=== PATIENT | male | born 1955 | race Asian ===

== ENCOUNTER → 2016-09-01 | Outpatient (CLI) | payer BC ==
[~2016-09-01] MED LIST: ASPIRIN 81M81 MG/TA2 PO; BRILINTA90 MG PO; FARXIGA10 PO; GLUCOPHAGE850 MG/TAB PO; JANUVIA 100MG100 MG PO; ZOCOR 20MG20 MG PO
[2016-09-01 09:10] LABS: HEMATOCRIT 47.2 % (42.0-52.0); HEMOGLOBIN 15.5 g/dl (13.5-18.0); MEAN CELL VOLUME 88 fl (80.0-100.0); MEAN CORPUSCULAR HEMOGLOBIN 29 pg (27.0-31.0); MEAN CORPUSCULAR HGB CONC 33 g/dl (33.0-37.0); PLATELET COUNT 162 K/mm3 (130-400); RED BLOOD COUNT 5.37 M/mm3 (4.20-5.60); REDCELL DISTRIBUTION WIDTH-CV 12.1 % (11.5-14.5); WHITE BLOOD COUNT 5.1 K/mm3 (4.8-10.8)
[2016-09-01 09:17] LABS: INR 0.9 (0.8-3.0); PROTHROMBIN TIME 10.2 SECONDS (9.7-12.8)
[2016-09-01 09:19] LABS: CALCIUM 9.3 mg/dL (8.4-10.2); CREATININE, serum 0.96 mg/dL (0.66-1.25); POTASSIUM 5.1 mmol/L (3.4-5.0)
== END ==
LOC: COL.CARD 06:19
PROVIDERS: Emergency Medicine
DX: E11.9 Type 2 diabetes mellitus without complications (principal)

== ENCOUNTER 2016-09-02 09:38 | Observation (INO) | payer BC ==
[~2016-09-02] VITALS: Ht 167.6 cm; Wt 68.0 kg
[2016-09-02] VITALS (247 sets, daily range): BP systolic 118–166; BP diastolic 64–77; PULSE 64–77; TEMP 97.3–98.7; O2SAT 95–100
[2016-09-02] MEDS ORDERED: GLUCOPHAGE850 MG/TAB PO (10:55)
[2016-09-02] MEDS ORDERED: JANUVIA 100MG100 MG PO (10:56)
[2016-09-02] MEDS ORDERED: FARXIGA10 PO (10:57)
[2016-09-02] MEDS ORDERED: ZOCOR 20MG20 MG PO (10:57)
[2016-09-02 11:06] LABS: HEMATOCRIT 45.3 % (42.0-52.0); HEMOGLOBIN 15.1 g/dl (13.5-18.0); MEAN CELL VOLUME 88 fl (80.0-100.0); MEAN CORPUSCULAR HEMOGLOBIN 29 pg (27.0-31.0); MEAN CORPUSCULAR HGB CONC 33 g/dl (33.0-37.0); MEAN PLATELET VOLUME 10.2 fl (7.4-10.4); PLATELET COUNT 177 K/mm3 (130-400); RED BLOOD COUNT 5.16 M/mm3 (4.20-5.60); WHITE BLOOD COUNT 5.1 K/mm3 (4.8-10.8)
[2016-09-02 11:07] LABS: CALCIUM 9.1 mg/dL (8.4-10.2); CREATININE, serum 0.88 mg/dL (0.66-1.25); POTASSIUM 4.5 mmol/L (3.4-5.0)
[2016-09-02 11:09] LABS: PROTHROMBIN TIME 10.6 SECONDS (9.7-12.8)
[2016-09-03] VITALS: BP 116/62; BP 119/62; PULSE 70; TEMP 98.4
[2016-09-03 04:24] VITALS: BP 119/62; PULSE 69; TEMP 98.2
[2016-09-03 04:25] VITALS: BP 119/62; PULSE 69; TEMP 98.2
[2016-09-03 06:22] LABS: BASO % 0.7 % (0.0-2.0); EOS # 0.3 (0.0-0.7); EOS % 5.1 % (0-4.0); GRAN # 3.2 (1.4-6.5); HEMATOCRIT 45.7 % (42.0-52.0); HEMOGLOBIN 15.1 g/dl (13.5-18.0); LYMPH # 1.6 (1.2-3.4); LYMPH % 28.4 % (20.0-51.0); MEAN CELL VOLUME 88 fl (80.0-100.0); MEAN CORPUSCULAR HEMOGLOBIN 29 pg (27.0-31.0); MEAN CORPUSCULAR HGB CONC 33 g/dl (33.0-37.0); MEAN PLATELET VOLUME 10.2 fl (7.4-10.4); MONO # 0.6 (0.1-0.6); MONO % 9.6 % (1.7-9.3); PLATELET COUNT 181 K/mm3 (130-400); RED BLOOD COUNT 5.22 M/mm3 (4.20-5.60); WHITE BLOOD COUNT 5.7 K/mm3 (4.8-10.8)
[2016-09-03 06:35] LABS: CALCIUM 8.8 mg/dL (8.4-10.2); CREATININE, serum 0.94 mg/dL (0.66-1.25); POTASSIUM 4.1 mmol/L (3.4-5.0)
[2016-09-03] MEDS ORDERED: BRILINTA90 MG PO (07:37)
[2016-09-03] MEDS ORDERED: ASPIRIN 81M81 MG/TA2 PO (07:37)
[2016-09-03 09:04] VITALS: BP 119/62; PULSE 72; TEMP 98
[2016-09-03 11:56] VITALS: BP 119/62; PULSE 75; TEMP 98
== END 2016-09-03 15:20 | disposition home or self-care (01) ==
LOC: EUO 09:38 → COL.CAR 10:00 → ICU 14:37 → IMCU 19:46
PROVIDERS: Internal Medicine Interventional Cardiology
DX: I25.10 Atherosclerotic heart disease of native coronary artery without angina pectoris (principal); Z79.84 Long term (current) use of oral hypoglycemic drugs; Z79.01 Long term (current) use of anticoagulants
CPT/HCPCS: C1725; C1760; C1769; C1874; C1887; C9600; C9601; J0583; J2250; J3010; Q9967

== ENCOUNTER 2017-03-02 12:36 | Inpatient (IN) | payer BC ==
[~2017-03-02] VITALS: Ht 167.6 cm; Wt 69.3 kg
[2017-03-02] VITALS (11 sets, daily range): BP systolic 129–165; BP diastolic 57–102; PULSE 62–76; TEMP 97.3–97.5
[2017-03-02 13:13] LABS: HEMATOCRIT 48.9 % (42.0-52.0); HEMOGLOBIN 16.2 g/dl (13.5-18.0); MEAN CELL VOLUME 89 fl (80.0-100.0); MEAN CORPUSCULAR HEMOGLOBIN 30 pg (27.0-31.0); MEAN CORPUSCULAR HGB CONC 33 g/dl (33.0-37.0); MEAN PLATELET VOLUME 9.7 fl (7.4-10.4); PLATELET COUNT 170 K/mm3 (130-400); WHITE BLOOD COUNT 4.7 K/mm3 (4.8-10.8)
[2017-03-02 13:18] LABS: PROTHROMBIN TIME 11.6 SECONDS (9.7-12.8)
[2017-03-02 13:23] LABS: CALCIUM 9.9 mg/dL (8.4-10.2); CREATININE, serum 1.04 mg/dL (0.66-1.25)
[2017-03-02] MEDS ORDERED: IMDUR 30MG30 MG/TAB PO (13:34)
[2017-03-02] MEDS ORDERED: COREG 3.123.125 MG/T PO (13:34)
[2017-03-02] MEDS ORDERED: NITROSTAT0.4 MG/TAB SL (13:34)
[2017-03-03 01:11] VITALS: BP 121/65; PULSE 63; TEMP 97.6
[2017-03-03 04:53] VITALS: BP 132/58; PULSE 69; TEMP 98.8
[2017-03-03 07:14] LABS: HEMATOCRIT 47.2 % (42.0-52.0); HEMOGLOBIN 15.7 g/dl (13.5-18.0); MEAN CELL VOLUME 89 fl (80.0-100.0); MEAN CORPUSCULAR HEMOGLOBIN 30 pg (27.0-31.0); MEAN CORPUSCULAR HGB CONC 33 g/dl (33.0-37.0); MEAN PLATELET VOLUME 10.2 fl (7.4-10.4); PLATELET COUNT 169 K/mm3 (130-400); RED BLOOD COUNT 5.31 M/mm3 (4.20-5.60); WHITE BLOOD COUNT 7.2 K/mm3 (4.8-10.8)
[2017-03-03 07:26] LABS: CALCIUM 9.4 mg/dL (8.4-10.2); CREATININE, serum 0.95 mg/dL (0.66-1.25); POTASSIUM 4.1 mmol/L (3.4-5.0)
[2017-03-03 08:32] VITALS: BP 112/51; PULSE 73; TEMP 97.6
[2017-03-03] MEDS ORDERED: NITROSTAT0.4 MG/TAB SL (09:35)
[2017-03-03] MEDS ORDERED: IMDUR 60MG60 MG/TAB PO (09:35)
[2017-03-03] MEDS ORDERED: LIPITOR 80MG80 MG PO (09:43)
[2017-03-03 09:51] LABS: CHOLESTEROL RISK RATIO 2.9
== END 2017-03-03 11:49 | disposition home or self-care (01) | DRG 247 ==
LOC: COL.CAR 12:36 → MEDICAL 19:57 → COL.CAR 19:58 → MEDICAL 21:00
PROVIDERS: Internal Medicine Interventional Cardiology; Nurse Practitioner Family
PROC: 027135Z Dilation of Coronary Artery, Two Arteries with Two Drug-eluting Intraluminal Devices, Percutaneous Approach (ICD-10-PCS; principal; 2017-03-02)
PROC: B2111ZZ Fluoroscopy of Multiple Coronary Arteries using Low Osmolar Contrast (ICD-10-PCS; 2017-03-02)
PROC: B2151ZZ Fluoroscopy of Left Heart using Low Osmolar Contrast (ICD-10-PCS; 2017-03-02)
PROC: 4A023N7 Measurement of Cardiac Sampling and Pressure, Left Heart, Percutaneous Approach (ICD-10-PCS; 2017-03-02)
DX: I25.10 Atherosclerotic heart disease of native coronary artery without angina pectoris (principal); Z95.5 Presence of coronary angioplasty implant and graft; E11.9 Type 2 diabetes mellitus without complications
CPT/HCPCS: C9600; C9601; J0583; J2250; J3010; Q9967

== ENCOUNTER → 2017-04-06 | Outpatient (CLI) | payer BC ==
[~2017-04-06] MED LIST changes: +COREG 3.123.125 MG/T PO; +IMDUR 30MG30 MG/TAB PO; +IMDUR 60MG60 MG/TAB PO; +LIPITOR 80MG80 MG PO; +NITROSTAT0.4 MG/TAB SL
== END ==
LOC: COL.RAD 03-30 09:45
DX: K76.0 Fatty (change of) liver, not elsewhere classified (principal)

== ENCOUNTER → 2018-01-18 | Outpatient (CLI) | payer BC | LOC: COL.RAD 01-13 12:45 | DX: M79.89 Other specified soft tissue disorders (principal); M67.823 Other specified disorders of tendon, right elbow ==

== ENCOUNTER → 2018-02-15 | Outpatient (CLI) | payer BC | LOC: COL.RAD 09:16 | DX: M79.89 Other specified soft tissue disorders (principal) | CPT/HCPCS: A9585 ==

== ENCOUNTER → 2018-05-13 | Day surgery (SDC) | payer MEDICARE, BC ==
--- NOTE | 2018-05-14 12:40 | NUR ---
Initial visit; Payroll Professional spoke with family letting them know spiritual care is available. They thanked Payroll Professional for coming by though declined.
[2018-05-14 15:05] LABS: HEMATOCRIT 44.6 % (42.0-52.0); HEMOGLOBIN 14.7 g/dl (13.5-18.0); MEAN CELL VOLUME 91 fl (80.0-100.0); MEAN CORPUSCULAR HEMOGLOBIN 30 pg (27.0-31.0); MEAN CORPUSCULAR HGB CONC 33 g/dl (33.0-37.0); PLATELET COUNT 168 K/mm3 (130-400); RED BLOOD COUNT 4.89 M/mm3 (4.20-5.60); REDCELL DISTRIBUTION WIDTH-CV 12.5 % (11.5-14.5)
[2018-05-14 15:30] LABS: CALCIUM 9.1 mg/dL (8.4-10.2); CREATININE, serum 0.81 mg/dL (0.66-1.25); POTASSIUM 4.4 mmol/L (3.4-5.0)
[2018-05-14 16:49] LABS: PROTHROMBIN TIME 11.1 SECONDS (9.7-12.8)
== END ==
LOC: COL.CAR 11:37
PROVIDERS: Internal Medicine Interventional Cardiology
DX: I25.118 Atherosclerotic heart disease of native coronary artery with other forms of angina pectoris (principal); I73.9 Peripheral vascular disease, unspecified; Z79.82 Long term (current) use of aspirin; Z79.84 Long term (current) use of oral hypoglycemic drugs; Z79.02 Long term (current) use of antithrombotics/antiplatelets
CPT/HCPCS: C1725; C1760; C1769; C1874; C1887; C1894; C9600

== ENCOUNTER 2020-10-16 10:57 | Day surgery (SDC) | payer MEDICARE, BC ==
[2020-10-16] VITALS (11 sets, daily range): BP systolic 94–166; BP diastolic 57–77; PULSE 62–68; TEMP 99.7
[~2020-10-16] VITALS: Ht 167.6 cm; Wt 67.9 kg
[2020-10-16 12:20] LABS: CALCIUM 9.3 mg/dL (8.4-10.2); CREATININE, serum 0.84 (0.66-1.25); POTASSIUM 4.5 mmol/L (3.4-5.0)
[2020-10-16 12:24] LABS: PROTHROMBIN TIME 11.4 SECONDS (9.7-12.8)
[2020-10-16 12:26] LABS: HEMATOCRIT 41.5 % (42.0-52.0); HEMOGLOBIN 13.8 g/dl (13.5-18.0); MEAN CELL VOLUME 89 fl (80.0-100.0); MEAN CORPUSCULAR HEMOGLOBIN 30 pg (27.0-31.0); MEAN CORPUSCULAR HGB CONC 33 g/dl (33.0-37.0); PARTIAL THROMBOPLASTIN TIME 33.8 SECONDS (26.0-37.0); PLATELET COUNT 167 K/mm3 (130-400); RED BLOOD COUNT 4.68 M/mm3 (4.20-5.60); REDCELL DISTRIBUTION WIDTH-CV 11.9 % (11.5-14.5)
[2020-10-16] MEDS ORDERED: PLAVIX 75MG TAB75 MG PO (12:32)
--- NOTE | 2020-10-16 17:10 | NUR ---
Air was removed from TR band in 2ml increments with no bleeding or complication. Rt radial puncture site covered with bandaid. INT DC'd with catheter intact. PT steady on feet in room. He is assisted out to 's car by wheelchair with belongings.
== END 2020-10-16 17:10 | disposition home or self-care (01) ==
LOC: COL.CAR 10:57
PROVIDERS: Internal Medicine Interventional Cardiology
DX: I25.10 Atherosclerotic heart disease of native coronary artery without angina pectoris (principal); I10 Essential (primary) hypertension; E78.5 Hyperlipidemia, unspecified; E11.9 Type 2 diabetes mellitus without complications; R94.39 Abnormal result of other cardiovascular function study; Z79.82 Long term (current) use of aspirin; Z20.822 Contact with and (suspected) exposure to COVID-19; Z79.899 Other long term (current) drug therapy; Z79.84 Long term (current) use of oral hypoglycemic drugs
CPT/HCPCS: C1769; J1644; J2250; J3010; Q9967